=== PATIENT | male | born 1945 | race Caucasian/White ===

== ENCOUNTER 2020-11-07 22:11 | Inpatient (IN) ==
[2020-11-08] MEDS ORDERED: Ondansetron 4 MG/2 ML VIAL IVP PRN (02:23)
[2020-11-08] MEDS ORDERED: Naloxone 0.4 MG/ML INJ IVP PRN (02:23)
[2020-11-08] MEDS ORDERED: 0.9 % Sodium Chloride 1,000 ML IVC SCH (02:30)
[2020-11-08 04:14] LABS: INR 1.2; Prothrombin Time 13.4 Seconds (9.4-12.1)
[2020-11-08 04:16] LABS: Activated Partial Thrombo Time 27.2 Seconds (26.0-36.0)
[2020-11-08 04:17] LABS: Albumin 3.5 g/dL (3.5-5.7); Albumin/Globulin Ratio 1.7 (1.1-2.2); Bilirubin,Total 0.9 mg/dL (0.3-1.0); Calcium 8.5 mg/dL (8.6-10.3); Globulin 2.1 g/dL (2.4-3.5); Potassium 4.2 mEq/L (3.5-5.1); Total Protein 5.6 g/dL (6.4-8.9)
[2020-11-08] MEDS ORDERED: Perflutren Lipid Microsphere 1.3 ML in 0.9 % Sodium Chloride 8.7 ML IVP PRN (05:45)
[2020-11-08] MEDS ORDERED: Cefepime HCl 2,000 MG in 0.9 % Sodium Chloride Mini Bag 100 ML IVPB SCH (06:02)
[2020-11-08 06:08] LABS: Troponin I 0.05 ng/mL (< 0.04)
[2020-11-08] MEDS ORDERED: Ipratropium/Albuterol Neb 3 ML IH PRN (06:47)
[2020-11-08 12:29] LABS: Albumin 3.2 g/dL (3.5-5.7); Albumin/Globulin Ratio 1.4 (1.1-2.2); Bilirubin,Total 0.8 mg/dL (0.3-1.0); Calcium 8.2 mg/dL (8.6-10.3); Globulin 2.3 g/dL (2.4-3.5); Potassium 4.1 mEq/L (3.5-5.1); Total Protein 5.5 g/dL (6.4-8.9)
[2020-11-08 15:49] LABS: Hepatitis B Surface Antigen Nonreactive (Nonreactive)
[2020-11-08 16:19] LABS: Hepatitis A Antibody IgM Nonreactive (Nonreactive); Hepatitis B Core IgM Nonreactive (Nonreactive); Hepatitis C Virus Antibody Nonreactive (Nonreactive)
[2020-11-08 17:15] LABS: Basophils % 0.4 %; Eosinophils # 0.1 K/mcL (0.0-0.6); Eosinophils % 1.8 %; Hematocrit 43.5 % (37.5-50.1); Hemoglobin 14.4 g/dL (12.9-16.9); Immature Granulocytes % 0.4 % (0-4); Lymphocytes # 0.4 K/mcL (0.6-4.6); Lymphocytes % 9.5 %; Mean Corpuscular HGB Conc 33.1 g/dL (31.6-35.5); Mean Corpuscular Hemoglobin 30.3 pg (28.0-33.3); Mean Corpuscular Volume 91.4 fL (83.0-100.0); Mean Platelet Volume 10.7 fL (9.4-12.4); Monocytes # 0.6 K/mcL (0.0-1.3); Monocytes % 13.7 %; Neutrophils # 3.3 K/mcL (1.6-8.9); Platelet Count 55 K/mcL (140-400); Red Blood Count 4.76 M/mcL (4.19-5.50); Red Cell Distribution Width 14.6 % (11.5-14.5); Segmented Neutrophils % 74.2 %; White Blood Count 4.5 K/mcL (4.3-11.1)
[2020-11-08] MEDS: Cefepime HCl 1,000 MG in Water for inj. (sterile) 10 ML IVP SCH (18:14)
[2020-11-09] MEDS: Cefepime HCl 1,000 MG in Water for inj. (sterile) 10 ML IVP SCH ×2 (05:19→17:27)
[2020-11-09 05:49] LABS: Basophils % 0.7 %; Eosinophils # 0.1 K/mcL (0.0-0.6); Hematocrit 38.1 % (37.5-50.1); Hemoglobin 12.7 g/dL (12.9-16.9); Immature Granulocytes % 0.5 % (0-4); Immature Platelets 5.6 % (1.1-6.1); Lymphocytes # 0.6 K/mcL (0.6-4.6); Lymphocytes % 12.8 %; Mean Corpuscular HGB Conc 33.3 g/dL (31.6-35.5); Mean Corpuscular Hemoglobin 29.8 pg (28.0-33.3); Mean Corpuscular Volume 89.4 fL (83.0-100.0); Mean Platelet Volume 10.7 fL (9.4-12.4); Monocytes # 0.5 K/mcL (0.0-1.3); Monocytes % 11.9 %; Neutrophils # 3.1 K/mcL (1.6-8.9); Red Blood Count 4.26 M/mcL (4.19-5.50); Red Cell Distribution Width 14.6 % (11.5-14.5); Segmented Neutrophils % 71.1 %; White Blood Count 4.3 K/mcL (4.3-11.1)
[2020-11-09 05:50] LABS: Platelet Count 50 K/mcL (140-400)
[2020-11-09 06:07] LABS: Calcium 8.5 mg/dL (8.6-10.3); Potassium 3.8 mEq/L (3.5-5.1)
[2020-11-10] MEDS: Cefepime HCl 1,000 MG in Water for inj. (sterile) 10 ML IVP SCH (05:30)
[2020-11-10 06:31] LABS: Basophils % 0.4 %; Immature Granulocytes % 0.4 % (0-4)
[2020-11-10 06:33] LABS: Eosinophils # 0.2 K/mcL (0.0-0.6); Eosinophils % 3.8 %; Hematocrit 40.2 % (37.5-50.1); Hemoglobin 13.2 g/dL (12.9-16.9); Lymphocytes # 0.5 K/mcL (0.6-4.6); Lymphocytes % 10.3 %; Mean Corpuscular HGB Conc 32.8 g/dL (31.6-35.5); Mean Corpuscular Hemoglobin 29.5 pg (28.0-33.3); Mean Corpuscular Volume 89.9 fL (83.0-100.0); Mean Platelet Volume 11.3 fL (9.4-12.4); Monocytes # 0.8 K/mcL (0.0-1.3); Monocytes % 15.2 %; Red Blood Count 4.47 M/mcL (4.19-5.50); Red Cell Distribution Width 14.4 % (11.5-14.5); Segmented Neutrophils % 69.9 %; White Blood Count 5.1 K/mcL (4.3-11.1)
[2020-11-10 06:34] LABS: Neutrophils # 3.6 K/mcL (1.6-8.9); Platelet Count 65 K/mcL (140-400)
[2020-11-10 06:40] VITALS: BP 111/71
[2020-11-10 06:48] LABS: Calcium 8.6 mg/dL (8.6-10.3); Potassium 3.8 mEq/L (3.5-5.1)
[2020-11-11 10:20] LABS: ANA IgG by ELISA NONE DETECTED (None Detected)
== END 2020-11-10 12:42 | disposition home or self-care (01) | DRG 813 ==
LOC: 3ANU → SUATTDRO 11-08 00:57 → 3ANU 11-09 15:33
PROVIDERS: ADMIT Internal Medicine; ATTEND Internal Medicine

== ENCOUNTER 2021-04-05 02:08 | Inpatient (IN) ==
[2021-04-05] MEDS ORDERED: Naloxone 0.4 MG/ML INJ IVP PRN (03:03)
[2021-04-05] MEDS ORDERED: Melatonin 3 MG TABLET PO PRN (03:09)
[2021-04-05] MEDS ORDERED: Ondansetron 4 MG/2 ML VIAL IVP PRN (03:09)
[2021-04-05] MEDS ORDERED: 0.9 % Sodium Chloride 1,000 ML IVC SCH (03:15)
[2021-04-05 04:25] LABS: Basophils % 0.2 %; Eosinophils % 0.3 %; Hematocrit 39.2 % (37.5-50.1); Hemoglobin 12.7 g/dL (12.9-16.9); Immature Granulocytes % 0.4 % (0-4); Lymphocytes # 0.7 K/mcL (0.6-4.6); Mean Corpuscular HGB Conc 32.4 g/dL (31.6-35.5); Mean Corpuscular Hemoglobin 30.2 pg (28.0-33.3); Mean Corpuscular Volume 93.3 fL (83.0-100.0); Mean Platelet Volume 8.8 fL (9.4-12.4); Monocytes # 1.4 K/mcL (0.0-1.3); Monocytes % 11.3 %; Neutrophils # 9.9 K/mcL (1.6-8.9); Platelet Count 207 K/mcL (140-400); Red Cell Distribution Width 14.9 % (11.5-14.5); Segmented Neutrophils % 81.8 %; White Blood Count 12.1 K/mcL (4.3-11.1)
[2021-04-05 04:33] LABS: INR 1.1; Prothrombin Time 12.5 Seconds (9.4-12.1)
[2021-04-05 04:45] LABS: Albumin 3.5 g/dL (3.5-5.7); Albumin/Globulin Ratio 1.8 (1.1-2.2); Bilirubin,Total 0.5 mg/dL (0.3-1.0); Calcium 8.3 mg/dL (8.6-10.3); Globulin 1.9 g/dL (2.4-3.5); Phosphorous 3.6 mg/dL (2.7-4.5); Total Protein 5.4 g/dL (6.4-8.9)
[2021-04-05] MEDS ORDERED: Cefepime HCl 2,000 MG in Water for inj. (sterile) 20 ML IVP SCH (05:00)
[2021-04-05] MEDS ORDERED: Vancomycin 1 EACH in 0.9 % Sodium Chloride 250 ML IVPB PRN (05:00)
[2021-04-05] MEDS ORDERED: Azithromycin 500 MG in 0.9 % Sodium Chloride 250 ML IVPB SCH (05:00)
[2021-04-05] MEDS: *HR* Heparin 5,000 UNIT/ML VIAL SQ SCH ×3 (06:13→23:21)
[2021-04-05] MEDS ORDERED: Ipratropium/Albuterol Neb 3 ML IH PRN (10:35)
[2021-04-05] MEDS ORDERED: levoFLOXacin 750 MG/150 ML 750 MG/150 ML BAG IVPB ONE (10:42)
[2021-04-06 05:11] LABS: Basophils % 0.4 %; Eosinophils # 0.3 K/mcL (0.0-0.6); Eosinophils % 3.2 %; Hematocrit 38.9 % (37.5-50.1); Hemoglobin 12.3 g/dL (12.9-16.9); Immature Granulocytes % 0.7 % (0-4); Lymphocytes # 0.4 K/mcL (0.6-4.6); Lymphocytes % 4.5 %; Mean Corpuscular HGB Conc 31.6 g/dL (31.6-35.5); Mean Corpuscular Hemoglobin 29.6 pg (28.0-33.3); Mean Corpuscular Volume 93.5 fL (83.0-100.0); Monocytes # 1.3 K/mcL (0.0-1.3); Monocytes % 12.8 %; Neutrophils # 7.7 K/mcL (1.6-8.9); Platelet Count 219 K/mcL (140-400); Red Blood Count 4.16 M/mcL (4.19-5.50); Red Cell Distribution Width 14.8 % (11.5-14.5); Segmented Neutrophils % 78.4 %; White Blood Count 9.8 K/mcL (4.3-11.1)
[2021-04-06 05:40] LABS: Calcium 8.8 mg/dL (8.6-10.3); Potassium 4.1 mEq/L (3.5-5.1)
[2021-04-06] MEDS: *HR* Heparin 5,000 UNIT/ML VIAL SQ SCH ×2 (06:13→13:08)
[2021-04-06] MEDS ORDERED: levoFLOXacin 500 MG TABLET PO SCH (09:00)
[2021-04-06] MEDS ORDERED: levoFLOXacin 500 MG/100 ML 500 MG/100 ML BAG IVPB SCH (09:00)
[2021-04-06 11:24] VITALS: PULSE 84; TEMP 98.3; O2SAT 90
[2021-04-06 11:25] VITALS: BP 124/77
[2021-04-06] MEDS ORDERED: FLU Vac QV 21-22 (6Month+)/PF 0.5 ML SYRINGE IM ONE (12:05)
== END 2021-04-06 14:16 | disposition home or self-care (01) | DRG 871 ==
LOC: 3ANU → SUATTDRO 02:08
PROVIDERS: ADMIT Internal Medicine; ATTEND Pharmacist

== ENCOUNTER 2021-08-26 13:37 | Inpatient (IN) ==
[2021-08-26] MEDS ORDERED: *HR* OxyCODONE Immed Rel 5 MG TABLET PO PRN (16:51)
[2021-08-26] MEDS ORDERED: Melatonin 3 MG TABLET PO PRN (16:51)
[2021-08-26] MEDS ORDERED: Acetaminophen 325 MG TABLET PO PRN (16:51)
[2021-08-26] MEDS ORDERED: Ondansetron ODT 4 MG TAB.RAPDIS SL PRN (16:51)
[2021-08-26] MEDS ORDERED: Mag Hydrox/Al Hydrox/Simeth 30 ML UDC PO PRN (16:51)
[2021-08-26] MEDS ORDERED: Naloxone 0.4 MG/ML INJ IVP PRN (16:51)
[2021-08-26] MEDS ORDERED: Ipratropium/Albuterol Neb 3 ML IH PRN (17:03)
[2021-08-26 17:36] LABS: Basophils % 0.3 %; Hematocrit 39.7 % (37.5-50.1); Hemoglobin 12.3 g/dL (12.9-16.9); Immature Granulocytes % 0.8 % (0-4); Lymphocytes # 0.5 K/mcL (0.6-4.6); Lymphocytes % 3.9 %; Mean Corpuscular Hemoglobin 28.2 pg (28.0-33.3); Mean Corpuscular Volume 91.1 fL (83.0-100.0); Mean Platelet Volume 9.1 fL (9.4-12.4); Monocytes # 0.1 K/mcL (0.0-1.3); Monocytes % 0.6 %; Neutrophils # 11.1 K/mcL (1.6-8.9); Platelet Count 314 K/mcL (140-400); Red Blood Count 4.36 M/mcL (4.19-5.50); Red Cell Distribution Width 14.8 % (11.5-14.5); Segmented Neutrophils % 94.4 %; White Blood Count 11.8 K/mcL (4.3-11.1)
[2021-08-26 17:43] LABS: Albumin 4.2 g/dL (3.5-5.7); Albumin/Globulin Ratio 1.7 (1.1-2.2); Bilirubin,Total 0.3 mg/dL (0.3-1.0); Calcium 9.5 mg/dL (8.6-10.3); Globulin 2.5 g/dL (2.4-3.5); Potassium 4.6 mEq/L (3.5-5.1); Total Protein 6.7 g/dL (6.4-8.9)
[2021-08-26 18:47] LABS: Adenovirus Not Detected (Not Detect); Bordetella Pertussis Not Detected (Not Detect); Chlamydophila pneumoniae Not Detected (Not Detect); Coronavirus 229E Not Detected (Not Detect); Coronavirus HKU1 Not Detected (Not Detect); Coronavirus NL63 Not Detected (Not Detect); Coronavirus OC43 Not Detected (Not Detect); Human Metapneumovirus Not Detected (Not Detect); Human Rhinovirus/Enterovirus Not Detected (Not Detect); Influenza A Subtype 2009 H1 Not Detected (Not Detect); Influenza B Not Detected (Not Detect); Mycoplasma pneumoniae Not Detected (Not Detect); Parainfluenza Virus 1 Not Detected (Not Detect); Parainfluenza Virus 2 Not Detected (Not Detect); Parainfluenza Virus 3 Not Detected (Not Detect); Parainfluenza Virus 4 Not Detected (Not Detect); Respiratory Syncytial Virus Not Detected (Not Detect); SARS-CoV-2 Not Detected (Not Detect)
[2021-08-27 07:12] LABS: Basophils % 0.1 %; Hemoglobin 12.2 g/dL (12.9-16.9); Immature Granulocytes % 0.8 % (0-4); Lymphocytes # 0.7 K/mcL (0.6-4.6); Mean Corpuscular HGB Conc 32.1 g/dL (31.6-35.5); Mean Corpuscular Hemoglobin 29.1 pg (28.0-33.3); Mean Corpuscular Volume 90.7 fL (83.0-100.0); Mean Platelet Volume 9.4 fL (9.4-12.4); Monocytes # 0.6 K/mcL (0.0-1.3); Monocytes % 4.4 %; Neutrophils # 13.2 K/mcL (1.6-8.9); Platelet Count 315 K/mcL (140-400); Red Blood Count 4.19 M/mcL (4.19-5.50); Red Cell Distribution Width 14.8 % (11.5-14.5); Segmented Neutrophils % 89.7 %; White Blood Count 14.7 K/mcL (4.3-11.1)
[2021-08-27 07:35] LABS: Calcium 9.8 mg/dL (8.6-10.3); Potassium 4.8 mEq/L (3.5-5.1)
[2021-08-27] MEDS ORDERED: levoFLOXacin 500 MG/100 ML 500 MG/100 ML BAG IVPB SCH (09:00)
[2021-08-27] MEDS: *HR* Heparin 5,000 UNIT/ML VIAL SQ SCH (17:51)
[2021-08-28 03:44] VITALS: O2SAT 94
[2021-08-28] MEDS: *HR* Heparin 5,000 UNIT/ML VIAL SQ SCH (06:07)
[2021-08-28 10:34] VITALS: BP 138/61; PULSE 84; TEMP 97.7
== END 2021-08-28 13:26 | disposition home or self-care (01) | DRG 199 ==
LOC: 2NENU
PROVIDERS: ADMIT Family Medicine; ATTEND Family Medicine